=== PATIENT | male | born 1975 | race Hispanic/Latino ===

== ENCOUNTER → 2022-12-04 | Day surgery (SDC) | payer BC ==
[~2022-12-04] MED LIST: ALLEGRA ALLERGY60 MG PO; CRESTOR10 MG PO; FAMOTIDINE20 MG PO; GLYBURIDE5 MG PO; JANUVIA100 MG PO; JARDIANCE25 MG; LACTATED RINGER'S 1,000 ML ONE; LIDOCAINE HCL 2% LOCAL INJ 5 ML SDV VIAL INJ ONE; LOSARTAN POTASS25 MG PO; METFORMIN HCL500 MG PO; METOCLOPRAMIDE HCL 10 MG/2ML VIAL ONE; MIDAZOLAM HCL 2 MG/2 ML VIAL ONE; PIOGLITAZONE HC45 MG PO; PROBIOTIC & AC1 EACH PO; PROPOFOL IV EMULSION 10 MG/ML 20 ML VIAL ONE; TRAZODONE PO; TRULICITY0.75 MG/0. INJ
[2022-12-04 12:32] VITALS: TEMP 97
[2022-12-04 12:53] VITALS: BP 109/75; PULSE 81; RESP 18; O2SAT 97
== END | disposition home or self-care (01) ==
LOC: OR 09:03
PROVIDERS: ATTEND Internal Medicine Gastroenterology
DX: K29.70 Gastritis, unspecified, without bleeding (principal); K31.89 Other diseases of stomach and duodenum; K44.9 Diaphragmatic hernia without obstruction or gangrene; K64.8 Other hemorrhoids; E78.5 Hyperlipidemia, unspecified; E11.9 Type 2 diabetes mellitus without complications; Z01.810 Encounter for preprocedural cardiovascular examination; Z79.84 Long term (current) use of oral hypoglycemic drugs; Z79.85 Long-term (current) use of injectable non-insulin antidiabetic drugs; Z79.899 Other long term (current) drug therapy
CPT/HCPCS: 36415; 43239; 82948; 93005; J2001; J2250; J2704; J2765; J7121